=== PATIENT | female | born 1970 | race Two or more races ===

== ENCOUNTER 2019-11-12 21:56 | Emergency (ER) | payer BC, MEDICARE ==
[~2019-11-12] VITALS: Ht 149.9 cm; Wt 63.5 kg
[2019-11-12 22:20] LABS: Basophils # (auto) 0.1 uL; Basophils % (auto) 1.2 % (0.0-2.0); Eosinophils # (auto) 0.2 uL; Eosinophils % (auto) 2.4 % (0.0-7.0); Hematocrit 38.8 % (36.0-46.0); Hemoglobin 13.3 g/dL (12.2-16.2); Lymphocytes # (auto) 2.6 uL; Lymphocytes % (auto) 31.1 % (10.0-50.0); Mean Corpuscular Hgb Conc. 34.3 g/dL (32.0-36.0); Mean Corpuscular Volume 84.5 fL (80.0-100.0); Monocytes # (auto) 0.7 uL; Monocytes % (auto) 8.4 % (0.0-12.0); Neutrophils # (auto) 4.7 uL; Neutrophils % (auto) 56.9 % (37.0-80.0); Nucleated Red Blood Cells % 0.1 %; Platelet Count (auto) 303 10^3/uL (140-450); Red Blood Cells 4.59 10^6/uL (4.0-5.20); Red Cell Distribution Width 13.6 % (11.8-14.3); White Blood Cell 8.2 10^3/uL (4.4-10.8)
[2019-11-12 22:39] LABS: Alanine Aminotransferase 37 U/L (13-56); Albumin 3.6 g/dL (3.4-5.0); Anion Gap 6 (5-15); Aspartate Aminotransferase 23 U/L (15-37); BUN/Creatinine Ratio 11.8; Blood Urea Nitrogen 9 mg/dL (7-18); Calcium 8.7 mg/dL (8.5-10.1); Carbon Dioxide 26 mmol/L (21-32); Chloride 105 mmol/L (98-107); GFR African American 104 mL/min; GFR Non-African American 86 mL/min; Glucose 88 mg/dL (74-106); Magnesium 2.2 mg/dL (1.6-2.6); Potassium 4.1 mmol/L (3.5-5.1); Sodium 137 mmol/L (136-145)
[2019-11-12 22:43] LABS: Alkaline Phosphatase 134 U/L (45-117); Bilirubin, Total 0.3 mg/dL (0.2-1.0); Total Protein 7.1 g/dL (6.4-8.2)
[2019-11-13] MEDS ORDERED: MORPHINE SULFATE 4 MG/ML SYR/VIAL IV ONE (02:00)
[2019-11-13] MEDS ORDERED: ONDANSETRON HCL 4 MG/2 ML VIAL IV ONE (02:00)
[2019-11-13 04:00] VITALS: BP 96/49
[2019-11-13 04:21] LABS: Urine Bacteria NONE SEEN /hpf (None Seen); Urine Blood Negative /uL (Negative); Urine Specific Gravity 1.016 (1.001-1.035); Urine WBC 10 /hpf (0 - 5)
== END 2019-11-13 04:36 | disposition home or self-care (01) ==
LOC: ER 22:00
DX: R07.89 Other chest pain (principal); Z88.0 Allergy status to penicillin; Z88.2 Allergy status to sulfonamides
CPT/HCPCS: 36415; 71045; 80053; 81001; 83690; 83735; 84484; 85025; 93005; 96374; 96375; 99285; J2270; J2405

== ENCOUNTER 2021-11-05 13:17 | Inpatient (IN) | payer BC, MEDICARE ==
[~2021-11-05] VITALS: Ht 149.9 cm; Wt 75.4 kg
[2021-11-05 14:58] LABS: Basophils # (auto) 0 10 ^3/uL (0-0.2); Basophils % (auto) 0.7 % (0.0-2.0); Eosinophils # (auto) 0.2 10 ^3/uL (0-0.8); Eosinophils % (auto) 3.2 % (0.0-7.0); Hematocrit 38.4 % (36.0-46.0); Lymphocytes # (auto) 1.5 10 ^3/uL (0.4-5.4); Lymphocytes % (auto) 24.9 % (10.0-50.0); Mean Corpuscular Hemoglobin 28.9 pg (28.0-32.0); Mean Corpuscular Hgb Conc. 33.9 g/dL (32.0-36.0); Mean Corpuscular Volume 85.3 fL (80.0-100.0); Monocytes # (auto) 0.4 10 ^3/uL (0-1.3); Monocytes % (auto) 7.3 % (0.0-12.0); Neutrophils # (auto) 3.8 10 ^3/uL (1.6-8.6); Neutrophils % (auto) 63.9 % (37.0-80.0); Nucleated Red Blood Cells % 0.1 %; Red Blood Cells 4.51 10^6/uL (4.0-5.20); Red Cell Distribution Width 14.9 % (11.8-14.3); White Blood Cell 5.9 10^3/uL (4.4-10.8)
[2021-11-05 15:11] LABS: Albumin 3.5 g/dL (3.4-5.0); Calcium 8.9 mg/dL (8.5-10.1); Magnesium 2.5 mg/dL (1.6-2.6); Potassium 3.9 mmol/L (3.5-5.1)
[2021-11-05 15:18] LABS: BUN/Creatinine Ratio 32.8; Bilirubin, Total 0.3 mg/dL (0.2-1.0); Total Protein 6.8 g/dL (6.4-8.2)
[2021-11-05] MEDS ORDERED: NITROGLYCERIN 0.4 MG SL TAB SL PRN (16:15)
[2021-11-05] MEDS ORDERED: MORPHINE SULFATE 4 MG/ML SYR/VIAL IV ONE (16:15)
[2021-11-05] MEDS ORDERED: ASPirin 81 mg TAB PO ONE (16:15)
[2021-11-05] MEDS ORDERED: SODIUM CHLORIDE 0.9% 500 ML IV ONE (16:15)
[2021-11-05 16:20] LABS: Urine Bacteria NONE SEEN /hpf (None Seen); Urine Blood Negative /uL (Negative); Urine Mucus FEW (None Seen); Urine Specific Gravity 1.019 (1.001-1.035); Urine WBC 1 /hpf (0 - 5)
[2021-11-05] MEDS ORDERED: ONDANSETRON HCL 4 MG/2 ML VIAL IV ONE (16:30)
[2021-11-05] MEDS ORDERED: IOHEXOL 350 MG/ML 100ML IJ ONE (17:05)
[2021-11-05] MEDS: MORPHINE SULFATE INJECTION 2 MG/ML SYRG IV PRN ×2 (17:13→18:47)
[2021-11-05] MEDS: SODIUM CHLORIDE 0.9% 1,000 ML IV SCH (18:43)
[2021-11-05] MEDS ORDERED: MONTELUKAST SODIUM 10 MG TAB PO ONE (18:45)
[2021-11-05] MEDS ORDERED: HYDROcodone-ACET 5/325MG TAB PO ONE (18:45)
[2021-11-05] MEDS ORDERED: DOCUSATE SOD 100 MG CAP PO PRN (18:45)
[2021-11-05] MEDS ORDERED: ALBUTEROL SULF 2.5 MG/0.5ML(0.5%) NEB SOLN NEB PRN (18:45)
[2021-11-05] MEDS ORDERED: ALBUTEROL SULF 2.5 MG/0.5ML(0.5%) NEB SOLN NEB ONE (18:45)
[2021-11-05] MEDS ORDERED: IPRATROPIUM BROM 0.5 MG/2.5ML INH SOL NEB ONE (18:45)
[2021-11-05] MEDS ORDERED: BUDESONIDE (INHALATION) 0.5 MG/2 ML NEB NEB ONE (18:45)
[2021-11-05] MEDS ORDERED: LORazepam 0.5 MG TAB PO PRN (18:45)
[2021-11-05] MEDS ORDERED: MULTIPLE VITAMINS W/ MINERALS TAB PO ONE (18:45)
[2021-11-05] MEDS ORDERED: HYDROcodone-ACET 5/325MG TAB PO PRN (18:45)
[2021-11-05] MEDS: DICYCLOMINE HCL 10 MG CAP PO SCH ×2 (21:55→22:00)
[2021-11-05] MEDS: FLUTICASONE PROP NASAL SPR 0.05 % (50MCG) 16GM EACHNOSTRI SCH (21:55)
[2021-11-05] MEDS: ATORVASTATIN 20 MG TAB PO SCH (21:55)
[2021-11-05] MEDS: TOPIRAMATE 25 MG TAB PO SCH ×2 (21:55→22:00)
[2021-11-05] MEDS: IPRATROPIUM BROM 0.5 MG/2.5ML INH SOL NEB SCH (22:00)
[2021-11-05 23:02] VITALS: BP 125/66
[2021-11-05] MEDS ORDERED: TOPI25TA43 PO (23:16)
[2021-11-05] MEDS ORDERED: DICY10CA PO (23:16)
[2021-11-05 23:30] VITALS: BP 95/55
[2021-11-06] MEDS: IPRATROPIUM BROM 0.5 MG/2.5ML INH SOL NEB SCH ×2 (01:23→05:59)
[2021-11-06] MEDS: HYDROcodone-ACET 5/325MG TAB PO PRN ×2 (02:15→14:44)
[2021-11-06 03:00] VITALS: BP 92/48
[2021-11-06 04:11] VITALS: BP 92/48
[2021-11-06] MEDS: SUMAtriptan SUCCINATE 25 MG TAB PO PRN ×3 (05:40→21:25)
[2021-11-06] MEDS: SODIUM CHLORIDE 0.9% 1,000 ML IV SCH ×2 (05:48→20:28)
[2021-11-06] MEDS: DICYCLOMINE HCL 10 MG CAP PO SCH ×4 (05:48→21:12)
[2021-11-06 06:08] LABS: Basophils # (auto) 0.1 10 ^3/uL (0-0.2); Basophils % (auto) 1.1 % (0.0-2.0); Eosinophils # (auto) 0.3 10 ^3/uL (0-0.8); Eosinophils % (auto) 5.4 % (0.0-7.0); Hematocrit 38.6 % (36.0-46.0); Hemoglobin 12.8 g/dL (12.2-16.2); Lymphocytes # (auto) 2.1 10 ^3/uL (0.4-5.4); Lymphocytes % (auto) 33.7 % (10.0-50.0); Mean Corpuscular Hemoglobin 28.5 pg (28.0-32.0); Mean Corpuscular Hgb Conc. 33.1 g/dL (32.0-36.0); Mean Corpuscular Volume 86.1 fL (80.0-100.0); Monocytes # (auto) 0.4 10 ^3/uL (0-1.3); Monocytes % (auto) 7.2 % (0.0-12.0); Neutrophils # (auto) 3.3 10 ^3/uL (1.6-8.6); Neutrophils % (auto) 52.6 % (37.0-80.0); Nucleated Red Blood Cells % 0.1 %; Red Blood Cells 4.48 10^6/uL (4.0-5.20); Red Cell Distribution Width 14.9 % (11.8-14.3); White Blood Cell 6.2 10^3/uL (4.4-10.8)
[2021-11-06 06:25] LABS: Albumin 3.3 g/dL (3.4-5.0); Calcium 8.4 mg/dL (8.5-10.1); Magnesium 1.9 mg/dL (1.6-2.6); Potassium 3.7 mmol/L (3.5-5.1)
[2021-11-06 06:35] LABS: INR 1.03 (0.9-1.15); Partial Thromboplastin Time 25.4 sec (23.6-33.0)
[2021-11-06 07:19] LABS: BUN/Creatinine Ratio 24.2; Bilirubin, Total 0.3 mg/dL (0.2-1.0); Phosphorus 4.4 mg/dL (2.5-4.90); Total Protein 6.2 g/dL (6.4-8.2)
[2021-11-06 09:00] VITALS: BP 105/53
[2021-11-06] MEDS: ASPirin 81 mg TAB PO SCH (09:56)
[2021-11-06] MEDS: FLUTICASONE PROP NASAL SPR 0.05 % (50MCG) 16GM EACHNOSTRI SCH ×2 (09:56→21:25)
[2021-11-06] MEDS: MULTIPLE VITAMINS W/ MINERALS TAB PO SCH (09:57)
[2021-11-06] MEDS: CYANOCOBALAMIN 500 MCG TAB PO SCH (09:57)
[2021-11-06] MEDS: ENOXAPARIN SOD 40 MG/0.4 ML SYRINGE SC SCH (09:57)
[2021-11-06] MEDS: TOPIRAMATE 25 MG TAB PO SCH ×2 (09:57→09:58)
[2021-11-06] MEDS: CHOLECALCIFEROL (VITD3) 2,000 UNIT CAP/TAB PO SCH (09:57)
[2021-11-06] MEDS ORDERED: BUDESONIDE (INHALATION) 0.5 MG/2 ML NEB NEB SCH (10:00)
[2021-11-06] MEDS: ONDANSETRON HCL 4 MG/2 ML VIAL IV PRN (12:45)
[2021-11-06 16:56] LABS: Alcohol, Urine < 3.0 mg/dL (0-10); Amphetamine Screen, Urine NEGATIVE (NEGATIVE); Barbiturate Scree,Urine NEGATIVE (NEGATIVE); Benzodiazephine Screen, Urine NEGATIVE (NEGATIVE); Cannabinoid Screen, Urine NEGATIVE (NEGATIVE); Cocaine Screen, Urine NEGATIVE (NEGATIVE); Opiate Scree,Urine NEGATIVE (NEGATIVE); Phencyclidine Screen, Urine NEGATIVE (NEGATIVE)
[2021-11-06 21:00] VITALS: BP 109/68
[2021-11-06] MEDS: ATORVASTATIN 20 MG TAB PO SCH (21:13)
[2021-11-06] MEDS: MONTELUKAST SODIUM 10 MG TAB PO SCH (21:13)
[2021-11-06] MEDS: LACTULOSE 20Gm/30ML SOLN PO PRN (21:25)
[2021-11-07 03:13] VITALS: BP 107/42
[2021-11-07] MEDS: DICYCLOMINE HCL 10 MG CAP PO SCH ×4 (05:40→21:09)
[2021-11-07] MEDS: FLUTICASONE PROP NASAL SPR 0.05 % (50MCG) 16GM EACHNOSTRI SCH ×2 (05:40→10:54)
[2021-11-07 08:00] VITALS: BP 95/65
[2021-11-07 09:00] VITALS: BP 95/65
[2021-11-07] MEDS: TOPIRAMATE 25 MG TAB PO SCH ×2 (10:00→21:38)
[2021-11-07] MEDS: CYANOCOBALAMIN 500 MCG TAB PO SCH (10:00)
[2021-11-07] MEDS: ASPirin 81 mg TAB PO SCH (10:00)
[2021-11-07] MEDS: ENOXAPARIN SOD 40 MG/0.4 ML SYRINGE SC SCH (10:00)
[2021-11-07] MEDS: MULTIPLE VITAMINS W/ MINERALS TAB PO SCH (10:00)
[2021-11-07] MEDS: CHOLECALCIFEROL (VITD3) 2,000 UNIT CAP/TAB PO SCH (10:00)
[2021-11-07] MEDS: SODIUM CHLORIDE 0.9% 1,000 ML IV SCH ×2 (10:30→21:38)
[2021-11-07] MEDS: ONDANSETRON HCL 4 MG/2 ML VIAL IV PRN (11:56)
[2021-11-07] MEDS: MORPHINE SULFATE INJECTION 2 MG/ML SYRG IV PRN ×2 (11:57→17:36)
[2021-11-07 12:51] VITALS: BP 104/68
[2021-11-07 16:55] VITALS: BP 108/68
[2021-11-07] MEDS: SUMAtriptan SUCCINATE 25 MG TAB PO PRN (17:36)
[2021-11-07] MEDS ORDERED: MORPHINE SULFATE INJECTION 2 MG/ML SYRG IV ONE (19:45)
[2021-11-07] MEDS ORDERED: HYDROcodone-ACET 10/325MG TAB PO ONE (21:00)
[2021-11-07] MEDS: ATORVASTATIN 20 MG TAB PO SCH (21:37)
[2021-11-07] MEDS: MONTELUKAST SODIUM 10 MG TAB PO SCH (21:38)
[2021-11-07 22:00] VITALS: BP 134/71
[2021-11-07] MEDS: BACLOFEN 10 MG TAB PO PRN (23:21)
[2021-11-08] MEDS: SUMAtriptan SUCCINATE 25 MG TAB PO PRN ×2 (01:02→06:17)
[2021-11-08] MEDS: HYDROcodone-ACET 5/325MG TAB PO PRN ×3 (02:31→16:01)
[2021-11-08] MEDS ORDERED: MORPHINE SULFATE INJECTION 2 MG/ML SYRG IV PRN (03:00)
[2021-11-08 05:06] VITALS: BP 95/70
[2021-11-08] MEDS: DICYCLOMINE HCL 10 MG CAP PO SCH ×3 (05:39→18:00)
[2021-11-08] MEDS ORDERED: ACETAMINOPHEN 325 MG TAB PO PRN (06:15)
[2021-11-08] MEDS: ONDANSETRON HCL 4 MG/2 ML VIAL IV PRN (07:13)
[2021-11-08 09:00] VITALS: BP 115/73
[2021-11-08] MEDS: BACLOFEN 10 MG TAB PO PRN ×2 (09:08→17:32)
[2021-11-08] MEDS: MULTIPLE VITAMINS W/ MINERALS TAB PO SCH (09:09)
[2021-11-08] MEDS: CYANOCOBALAMIN 500 MCG TAB PO SCH (09:09)
[2021-11-08] MEDS: ASPirin 81 mg TAB PO SCH (09:09)
[2021-11-08] MEDS: TOPIRAMATE 25 MG TAB PO SCH (09:09)
[2021-11-08] MEDS: LACTULOSE 20Gm/30ML SOLN PO PRN (09:10)
[2021-11-08] MEDS: CHOLECALCIFEROL (VITD3) 2,000 UNIT CAP/TAB PO SCH (09:10)
[2021-11-08] MEDS: ENOXAPARIN SOD 40 MG/0.4 ML SYRINGE SC SCH (09:12)
[2021-11-08] MEDS: SODIUM CHLORIDE 0.9% 1,000 ML IV SCH (09:12)
[2021-11-08] MEDS ORDERED: METHOCARBAMOL 500 MG TAB PO ONE (10:15)
[2021-11-08] MEDS: FLUTICASONE PROP NASAL SPR 0.05 % (50MCG) 16GM EACHNOSTRI SCH (11:12)
[2021-11-08 13:00] VITALS: BP 108/64
[2021-11-08 17:00] VITALS: BP 121/68
[2021-11-08] MEDS ORDERED: METHOCARBAMOL 500 MG TAB PO SCH (18:00)
== END 2021-11-08 20:05 | disposition home or self-care (01) | DRG 310 ==
LOC: ER 13:17 → TELE 16:10 → TELE-WESTW 21:40
PROVIDERS: ADMIT Hospitalist; ATTEND Family Medicine
DX: R00.1 Bradycardia, unspecified (principal); G43.909 Migraine, unspecified, not intractable, without status migrainosus; K21.9 Gastro-esophageal reflux disease without esophagitis; K29.70 Gastritis, unspecified, without bleeding; J45.909 Unspecified asthma, uncomplicated; E78.5 Hyperlipidemia, unspecified; M54.9 Dorsalgia, unspecified; E66.9 Obesity, unspecified; K75.81 Nonalcoholic steatohepatitis (NASH); Z68.33 Body mass index [BMI] 33.0-33.9, adult; Z82.49 Family history of ischemic heart disease and other diseases of the circulatory system; Z98.84 Bariatric surgery status; Z88.0 Allergy status to penicillin; Z88.2 Allergy status to sulfonamides
CPT/HCPCS: 36415; 71045; 71046; 71275; 72125; 78452; 80053; 80061; 80307; 81001; 81025; 82728; 83735; 83880; 84100; 84443; 84484; 85025; 85379; 85610; 85730; 87040; 87086; 87426; 93005; 93017; 93306; 94640; 96361; 96374; 96375; 96376; G0378; J2405

== ENCOUNTER → 2022-12-12 | Outpatient (CLI) | payer BC, MEDICARE ==
[~2022-12-12] MED LIST: DICY10CA PO; TOPI25TA43 PO
[2022-12-12 15:12] LABS: Urine Bacteria NONE SEEN /hpf (None Seen); Urine Blood Negative /uL (Negative); Urine Specific Gravity 1.018 (1.001-1.035); Urine WBC 4 /hpf (0 - 5)
== END | disposition home or self-care (01) ==
LOC: LAB 14:56
PROVIDERS: ATTEND Urology
DX: N39.0 Urinary tract infection, site not specified (principal)
CPT/HCPCS: 81001; 87086

== ENCOUNTER → 2023-02-06 | Day surgery (SDC) | payer BC, MEDICARE ==
[2023-02-03 10:31] LABS: Basophils # (auto) 0 10 ^3/uL (0-0.2); Eosinophils # (auto) 0.1 10 ^3/uL (0-0.8); Hemoglobin 11.1 g/dL (12.2-16.2); Monocytes # (auto) 0.4 10 ^3/uL (0-1.3); Nucleated Red Blood Cells % 0.1 %
[2023-02-03 10:32] LABS: Basophils % (auto) 0.9 % (0.0-2.0); Eosinophils % (auto) 2.7 % (0.0-7.0); Lymphocytes # (auto) 1.2 10 ^3/uL (0.4-5.4); Mean Corpuscular Hemoglobin 24.7 pg (28.0-32.0); Mean Corpuscular Hgb Conc. 31.7 g/dL (32.0-36.0); Mean Corpuscular Volume 77.9 fL (80.0-100.0); Monocytes % (auto) 8.4 % (0.0-12.0); Red Blood Cells 4.49 10^6/uL (4.0-5.20); Red Cell Distribution Width 14.4 % (11.8-14.3); White Blood Cell 4.8 10^3/uL (4.4-10.8)
[2023-02-03 10:56] LABS: INR 0.98 (0.9-1.15); Partial Thromboplastin Time 26.6 sec (24.6-33.4)
[2023-02-03 11:02] LABS: Urine Bacteria MOD /hpf (None Seen); Urine Blood TRACE /uL (Negative); Urine Mucus FEW (None Seen); Urine Specific Gravity 1.024 (1.001-1.035); Urine WBC 16 /hpf (0 - 5)
[2023-02-03 11:05] LABS: Potassium 3.7 mmol/L (3.5-5.1)
[2023-02-03 11:27] LABS: Albumin 3.5 g/dL (3.4-5.0); BUN/Creatinine Ratio 20.7 (10.0-20.0); Bilirubin, Total 0.4 mg/dL (0.2-1.0); Calcium 8.8 mg/dL (8.5-10.1); Total Protein 6.8 g/dL (6.4-8.2)
[~2023-02-06] VITALS: Ht 149.9 cm; Wt 64.9 kg
[~2023-02-06] MED LIST changes: -DICY10CA PO; +FAMO20TA10 PO; +NAP500T PO; +OXYC325T14 PO; +PANT40TA2 PO; +PUMP1CAP PO
[2023-02-06 12:30] VITALS: BP 123/74
== END | disposition home or self-care (01) ==
LOC: SUR 09:40
PROVIDERS: ATTEND Urology
DX: R31.9 Hematuria, unspecified (principal); N39.0 Urinary tract infection, site not specified; Z90.710 Acquired absence of both cervix and uterus; Z98.891 History of uterine scar from previous surgery; Z98.890 Other specified postprocedural states; Z53.8 Procedure and treatment not carried out for other reasons
CPT/HCPCS: 36415; 80053; 81001; 85025; 85610; 85730; 87086; 87088; 87186

== ENCOUNTER 2023-03-13 08:59 | Day surgery (SDC) | payer BC, MEDICARE ==
[2023-03-10 14:56] LABS: Urine Bacteria NONE SEEN /hpf (None Seen); Urine Blood Negative /uL (Negative); Urine Mucus FEW (None Seen); Urine Specific Gravity 1.019 (1.001-1.035); Urine WBC 1 /hpf (0 - 5)
[2023-03-10 14:58] LABS: Basophils # (auto) 0 10 ^3/uL (0-0.2); Eosinophils # (auto) 0.1 10 ^3/uL (0-0.8); Eosinophils % (auto) 1.6 % (0.0-7.0); Hemoglobin 11.1 g/dL (12.2-16.2); Lymphocytes # (auto) 1.4 10 ^3/uL (0.4-5.4); Neutrophils # (auto) 4.6 10 ^3/uL (1.6-8.6); White Blood Cell 6.5 10^3/uL (4.4-10.8)
[2023-03-10 15:00] LABS: Basophils % (auto) 0.5 % (0.0-2.0); Hematocrit 34.9 % (36.0-46.0); Lymphocytes % (auto) 22.1 % (10.0-50.0); Mean Corpuscular Hemoglobin 24.8 pg (28.0-32.0); Mean Corpuscular Hgb Conc. 31.7 g/dL (32.0-36.0); Mean Corpuscular Volume 78.2 fL (80.0-100.0); Monocytes # (auto) 0.3 10 ^3/uL (0-1.3); Monocytes % (auto) 5.1 % (0.0-12.0); Neutrophils % (auto) 70.7 % (37.0-80.0); Red Blood Cells 4.46 10^6/uL (4.0-5.20); Red Cell Distribution Width 15.9 % (11.8-14.3)
[2023-03-10 15:08] LABS: INR 1.01 (0.9-1.15); Partial Thromboplastin Time 26.6 SEC (24.5-34.5)
[2023-03-10 15:11] LABS: Albumin 3.6 g/dL (3.4-5.0); Calcium 8.5 mg/dL (8.5-10.1); Potassium 3.8 mmol/L (3.5-5.1)
[2023-03-10 15:15] LABS: Bilirubin, Total 0.3 mg/dL (0.2-1.0); Total Protein 6.9 g/dL (6.4-8.2)
[~2023-03-13] VITALS: Ht 149.9 cm; Wt 64.4 kg
[2023-03-13] MEDS ORDERED: GENTAMICIN SULFATE 2 ML ONE (10:02)
[2023-03-13] MEDS ORDERED: ONDANSETRON HCL 4 MG/2 ML VIAL ONE (10:41)
[2023-03-13] MEDS ORDERED: MIDAZOLAM HCL 2MG/2ML 2ml VIAL (1mg/ml) ONE (10:41)
[2023-03-13] MEDS ORDERED: PROPOFOL 10 MG/ML 20 ML IV ONE (10:41)
[2023-03-13] MEDS ORDERED: GLYCOPYRROLATE 0.2 MG/ML 1ML VIAL ONE (10:41)
[2023-03-13] MEDS ORDERED: DexAMETHasone SOD PHOS 10MG/1ML VIAL INJ ONE (10:41)
[2023-03-13] MEDS ORDERED: LIDOCAINE 2% (LOCAL ANESTH.) PF 5ml SDV ONE (10:41)
[2023-03-13] MEDS ORDERED: KETOROLAC TROMETH 30 MG/ML 1ML VIAL ONE (10:41)
[2023-03-13] MEDS ORDERED: fentaNYL CITRATE 100 MCG/2 ML VL ONE (10:41)
[2023-03-13] MEDS ORDERED: MEPERIDINE HCL (25 MG/ML) 1ML VIAL ONE (10:46)
[2023-03-13] MEDS ORDERED: FAMOTIDINE (10MG/ML) 2ML VL IV ONE (11:00)
[2023-03-13] MEDS ORDERED: LIDOCAINE 2% JELLY 11ml (GLYDO) ONE (11:45)
[2023-03-13] MEDS ORDERED: ONDANSETRON HCL 4 MG/2 ML VIAL IV PRN (12:00)
[2023-03-13] MEDS: HYDROmorphone HCL 2 MG/ML VL/or syr IV PRN ×2 (12:22→12:36)
[2023-03-13] MEDS ORDERED: HYDROmorphone HCL 2 MG/ML VL/or syr IV ONE ×4 (12:23→13:06)
[2023-03-13] MEDS ORDERED: OXYBUTYNIN CHL 5 MG TAB PO STA (12:43)
[2023-03-13 13:20] VITALS: BP 157/61
== END 2023-03-13 13:50 | disposition home or self-care (01) ==
LOC: SUR 08:59
PROVIDERS: ATTEND Urology
DX: N30.10 Interstitial cystitis (chronic) without hematuria (principal); Z98.84 Bariatric surgery status; Z98.890 Other specified postprocedural states
CPT/HCPCS: 36415; 52260; 80053; 81001; 85025; 85610; 85730; 87086; C1769; J1100; J1170; J1580; J1885; J2001; J2175; J2250; J2405; J2704; J3010; J3490; J7030